=== PATIENT | female | born 1995 | race Caucasian/White ===

== ENCOUNTER 2019-03-19 01:01 | Day surgery (SDC) | payer OTHER, SELFPAY ==
[2019-03-14 11:08] VITALS: BMI 19.7
--- NOTE | 2019-03-18 17:49 | WPDANESEPP ---
Anes - Eval Pre Procedure Procedure: Operation Date: 03/19/19 07:30 Proposed Procedures p Diagnostic Laparoscopy - Jagdish Williamson MD Date/Time: 03/18/19 17:49 Pre Op Diagnosis: pelvic pain Patient Data Age: 23 Gender: F Height: 1.52 m Weight: 45.81 kg Allergies Allergy/AdvReac Type Severity Reaction Status Date / Time No Known Allergies Allergy Unverified 03/14/19 11:09 Home Medications Medication Instructions Recorded Confirmed Type cyanocobalamin (vitamin B-12) 1,000 mcg IM MONTHLY 02/12/19 03/14/19 History levonorgestrel [Mirena] 1 device INTRAUTERINE ONCE 02/12/19 03/14/19 History amitriptyline 25 mg PO HS 03/14/19 03/14/19 History hydrocodone-acetaminophen 1 tablet PO Q6H PRN 03/14/19 03/14/19 History iron 1 tablet PO DAILY 03/14/19 03/14/19 History Patient hx anesthesia problems: none Family hx anesthesia problems: none PMFSH Past Medical History Medical History (Updated 03/18/19 @ 10:47 by Feliz Grove DO) Anemia Anxiety B12 deficiency Depression Migraine Surgical History Surgical History (Updated 03/18/19 @ 10:47 by Feliz Grove DO) H/O section History of tonsillectomy Social History Social History Smoking packs per day: 0.5 Smoking cigarettes per day: 10.0 Smoking status: Current every day smoker Tobacco type: cigarettes Alcohol intake: never Substance use: never Gender identity (if verbalized by the patient): Female Exam Day of Procedure 03/18/19 17:49
[2019-03-19] VITALS (7 sets, daily range): BP systolic 93–127; BP diastolic 58–88; PULSE 72–90; RESP 12–20; TEMP 36.4; O2SAT 95–100
[2019-03-19] MEDS: LACTATED RINGERS 1,000 ML 30 ML IV CONT ×2 (06:30→08:40)
--- NOTE | 2019-03-19 06:40 | P.PNAN_ITS ---
Anes - Eval Final PreProcedure Day of Procedure 03/19/19 06:40 Patient weight: normal Heart: regular rate and rhythm Lungs: clear to auscultation Airway: Mallampati scale class II Neurological: alert and oriented Last oral intake: >/= 8 hours ASA classification: II Emergent: no Anesthetic plan: proceed Anesthesia type and monitoring: general ETT and standard monitoring Informed Consent: The patient's anesthetic plan and its attendant risks and be nefits were discussed with the patient/family/POA. Questions were solicited and answers provided to the satisfaction of the patient/family/POA.
--- NOTE | 2019-03-19 07:31 | WPDHPUPDATE1 ---
History and Physical Update Update Date/Time: 03/19/19 07:31 History and Physical has been reviewed, including an updated exam of the patient. There are NO changes in the patient's condition. Risks, benefits, and alternatives have been discussed and questions answered. Patient agrees to proceed with procedure.
[2019-03-19] MEDS: KETOROLAC 30 MG/ML VIAL (*BKC) IV PUSH (08:29)
--- NOTE | 2019-03-19 08:53 | P.OP_ITS ---
Procedure Note - Detailed Date of procedure: 03/19/19 Pre-op diagnosis: pelvic pain Post-op diagnosis: same ( Bilateral ovarian cysts, pelvic adhesions) Procedure performed: Description of procedure: The patient was taken the operating room. She was prepped and draped in the dorsal lithotomy position after induction of general anesthesia. A 5 mm left upper quadrant incision was made in the abdominal skin with a scalpel. A 5 mm trocar was inserted the intra-abdominal cavity under direct visualization of the scope. A 5 mm left lower quadrant incision was made with the scalp on the abdominal skin and a 5 mm trocar was inserted the intra- abdominal cavity under direct visualization of the scope. A 5 mm infraumbilical incision was made with scalpel and a 5 mm trocar was inserted into the intra- abdominal cavity under direct visualization of the scope. Adhesiolysis was performed. there were adhesions from the small intestine to the left lower quadrant. These were thin adhesions that were taken down with cautery and scissors. The colon was adherent to the lower left quadrant. The the adhesion between the colon and left lower quadrant were taken down with cautery and scissors. Ovarian cysts on both ovaries were broken down using cautery. A hemorrhagic corpus luteum cyst on the left ovary was opened using cautery and the clot within was irrigated. The procedure was terminated. The pelvis was irrigated with copious amounts of normal saline. The pneumoperitoneum was reduced. The trocars were removed. The patient was taken recovery room stable condition. Sponge lap and needle counts were correct x2. Anesthesia: GETA Surgeon: Jagdish Williamson MD Estimated blood loss (mL): 20 Drains: No Packing: No Complications: No immediate complications Condition: stable Disposition: PACU Findings: Adhesions from the small intestine to the left lower quadrant of the abdomen laterally, adhesions between the Descending colon inferiorly and the lateral pelvic sidewall on the left. there was multiple small ovarian cysts throughout both ovary, there is a hemorrhagic corpus luteum cyst on the left ovary of about 2 cm in size.
[2019-03-19] MEDS: HYDROMORPHONE HCL 1 MG/ML INJ 0.5 MG IV PUSH ×2 (08:55→09:01)
[2019-03-19] MEDS: ONDANSETRON INJ 4 MG/2 ML VIAL IV PUSH (10:00)
== END 2019-03-19 10:28 | disposition home or self-care (01) ==
PROVIDERS: PCP Family Medicine; Visit Provider Obstetrics & Gynecology
PROC: (CPT 49320; principal; 2019-03-19 07:30)
DX: N83.12 Corpus luteum cyst of left ovary (principal); N83.201 Unspecified ovarian cyst, right side; N73.6 Female pelvic peritoneal adhesions (postinfective); R10.2 Pelvic and perineal pain; D64.9 Anemia, unspecified; E53.8 Deficiency of other specified B group vitamins; F41.8 Other specified anxiety disorders; F17.210 Nicotine dependence, cigarettes, uncomplicated
CPT/HCPCS: 58662; A9270; J0131; J0330; J1100; J1170; J1885; J2250; J2370; J2405; J2704; J3010; J7030; J7120

== ENCOUNTER 2019-10-12 12:33 | Emergency (ER) | payer OTHER, SELFPAY ==
[2019-10-12 12:44] VITALS: BP 107/56; PULSE 86; RESP 16; TEMP 37.1; O2SAT 99
--- NOTE | 2019-10-12 12:50 | ED.SKABFB ---
HPI - Skin/Abscess/Foreign Bdy General Chief complaint: Skin/Abscess/Foreign Body Stated complaint: rash Time Seen by Provider: 10/12/19 12:50 Source: patient Mode of arrival: ambulatory Limitations: no limitations History of Present Illness HPI narrative: Candie Miranda is a 24 yo female who comes to [facility] with urticaria that started this morning. About 10 random hive appearing large itchy mildly tender lesions on legs left buttock right lower extremity. Denies allergies; denies changing any cleaning products or self care products Related Data Home Medications Medication Instructions Recorded Confirmed Mirena 1 device INTRAUTERINE ONCE 02/12/19 03/19/19 Allergies Allergy/AdvReac Type Severity Reaction Status Date / Time No Known Allergies Allergy Unverified 03/19/19 06:57 Review of Systems Review of Systems: Narrative: CONSTITUTIONAL: Denies fever, chills, sweats. EYES: Denies visual changes, redness, discharge. ENT: Denies rhinorrhea, congestion, sore throat, otalgia. CARDIOVASCULAR: Denies chest pain, palpitations, edema. RESPIRATORY: Denies dyspnea, wheezing, cough GASTROINTESTINAL: Denies abdominal pain, nausea, vomiting, diarrhea. GENITOURINARY: Denies dysuria, hematuria, abnormal discharge SKIN: Denies rash -has 10 lesions that are hive appearing. On both legs and left buttock NEUROLOGIC: Denies numbness, or focal weakness. PSYCHIATRIC: Denies anxiety or depression. PMFSH Past Medical History Medical History Anemia Anxiety B12 deficiency Depression Migraine Surgical History Surgical History H/O section History of tonsillectomy Social History Social History (Updated 10/12/19 @ 13:01 by Caren Ley CNP) Smoking packs per day: 0.5 Smoking cigarettes per day: 10.0 Smoking status: Current every day smoker Tobacco type: cigarettes Additional smoking assessment comments: Patient is trying to quit smoking is down to 1 cigarette a day currently Alcohol intake: never Substance use: never Gender identity (if verbalized by the patient): Female Exam Narrative: Exam Narrative: GENERAL: This is a well-nourished, well-developed patient, in mild distress. HEAD: normocephalic, atraumatic. EYES: Sclera clear/white. Vision is grossly intact. EARS: External ears normal,. Hearing grossly intact. NOSE: External nose normal without nasal discharge, nares without redness, no rhinorrhea. THROAT: Mucous membranes moist, NECK: Neck supple, CARDIOVASCULAR: Regular rate and rhythm without murmurs, gallops, or rubs. RESPIRATORY: Clear to auscultation. Breath sounds equal bilaterally. No wheezes, rales, or rhonchi. GASTROINTESTINAL: Abdomen soft, SKIN: warm, intact with no suspicious lesions or rash, good texture and turgor. Large hives randomly on lower extremities and left buttock NEURO: awake, alert, and oriented to person, place and time. There were no obvious focal neurologic abnormalities. Steady gait EXTREMITIES: Normal range of motion. BACK: Nontender without deformity Course Course Emergency Course: Started on Pepcid Benadryl and Medrol Dosepak Vital Signs Vital signs: Vital Signs Temperature 98.8 F 10/12/19 12:44 Pulse Rate 86 10/12/19 12:44 Respiratory Rate 16 10/12/19 12:44 Blood Pressure 107/56 L 10/12/19 12:44 Pulse Oximetry 99 10/12/19 12:44 Temperature 98.8 F 10/12/19 12:44 Pulse Rate 86 10/12/19 12:44 Respiratory Rate 16 10/12/19 12:44 Blood Pressure 107/56 L 10/12/19 12:44 Pulse Oximetry 99 10/12/19 12:44 MDM - Skin/Abscess/Foreign Bdy Differential Diagnosis Differential diagnosis: Likely viral exanthem, urticaria, allergic reaction to drug and contact dermatitis Critical Care Time Critical Care Time Critical Care Time: No Discharge Plan Discharge Clinical Impression: Urticaria Insect bites
== END 2019-10-12 13:25 | disposition home or self-care (01) ==
PROVIDERS: Emergency Provider Nurse Practitioner; PCP Family Medicine
DX: L50.9 Urticaria, unspecified (principal); S50.862A Insect bite (nonvenomous) of left forearm, initial encounter; W57.XXXA Bitten or stung by nonvenomous insect and other nonvenomous arthropods, initial encounter; F17.210 Nicotine dependence, cigarettes, uncomplicated
CPT/HCPCS: 99213; G0463

== ENCOUNTER 2020-05-21 13:40 | Outpatient (CLI) | payer OTHER, SELFPAY | END 2020-05-21 13:41 | disposition home or self-care (01) | LOC: ANHCOVIDVC 13:40 | PROVIDERS: PCP Family Medicine | DX: Z23 Encounter for immunization (principal) | CPT/HCPCS: 0001A; 91300 ==

== ENCOUNTER 2020-05-25 13:53 | Outpatient (CLI) | payer OTHER, SELFPAY ==
--- NOTE | 2020-05-25 | ECHO_ITS ---
Patient Info Name: Candie Miranda Age: 24 years : 1995 Gender: Female Ht: 60 in Wt: 120 lbs BSA: 1.53 m2 HR: 81 bpm BP: 110 / 74 mmHg Heart Rhythm: Sinus Rhythm Technical Quality: Good Exam Date: 05/25/2020 2:14 PM Exam Location: [facility] Patient Status: Outpatient Admit Date: 05/25/2020 Staff Ordering Physician: Porfirio, Gamaliel PEREZ Mechanical Test Engineer: Wesly Lion, TERRIE, RT Attending Provider: Porfirio, Gamaliel PEREZ Exam Type: CA echo doppler color flow Study Info Indications R55 - Syncope and collapse Complete two-dimensional, color flow and Doppler transthoracic echocardiogram is performed. Strain analysis performed. Summary 1. Complete two-dimensional, color flow and Doppler transthoracic echocardiogram is performed. 2. Strain analysis performed. 3. Left ventricular chamber dimension is normal. 4. Left ventricular systolic function is normal, estimated at 55-60%. 5. There is no increased left ventricular wall thickness. 6. The left ventricular diastolic function is normal. 7. Global longitudinal strain is borderline at -17 %. 8. There is mild mitral valve regurgitation. 9. There is mild tricuspid valve regurgitation. Left Ventricle Left ventricular chamber dimension is normal. Left ventricular systolic function is normal, estimated at 55-60%. There is no increased left ventricular wall thickness. The left ventricular diastolic function is normal. Global longitudinal strain is borderline at -17 %. Right Ventricle Right ventricular chamber dimension is normal. Right ventricular systolic function is normal. Left Atria Left atrial chamber dimension is normal. Right Atria Right atrial chamber dimension is normal. Atrial Septum Intact interatrial septum visualized by color flow imaging. Aortic Valve The aortic valve is trileaflet. There is mild aortic valve sclerosis. There is no aortic valve stenosis. There is trace aortic valve regurgitation. Pulmonic Valve The pulmonic valve is normal. There is no pulmonic valve stenosis. There is trace pulmonic regurgitation. Mitral Valve The mitral valve has normal leaflets. There is no mitral valve stenosis. There is mild mitral valve regurgitation. Tricuspid Valve The tricuspid valve leaflets are normal. There is no significant tricuspid valve stenosis. There is mild tricuspid valve regurgitation. Pericardium/Pleural The pericardium appears normal. There is no pericardial effusion. Inferior Vena Cava Normal inferior vena cava with <50% collapse upon inspiration consistent with elevated right atrial pressure, 10 mmHg. Aorta The aortic root size at the sinus of Valsalva is normal. The prox ascending aorta size is normal. Left Ventricular Outflow Tract Name Value Normal LVOT 2D LVOT Diameter 2.0 cm LVOT Doppler LVOT Peak Gradient 3 mmHg LVOT Mean Gradient 2 mmHg LVOT VTI 17 cm LVOT VTI/AV VTI Ratio 0.8 LVOT Stroke Volume 50 ml LVOT
== END 2020-05-25 13:54 | disposition home or self-care (01) ==
LOC: ANHCARD 13:54
PROVIDERS: PCP Family Medicine; Visit Provider Nurse Practitioner Family
DX: R55 Syncope and collapse (principal); I34.0 Nonrheumatic mitral (valve) insufficiency; I36.1 Nonrheumatic tricuspid (valve) insufficiency
CPT/HCPCS: 93306

== ENCOUNTER 2020-06-11 13:54 | Outpatient (CLI) | payer OTHER, SELFPAY | END 2020-06-11 13:55 | disposition home or self-care (01) | LOC: ANHCOVIDVC 13:54 | PROVIDERS: PCP Family Medicine | DX: Z23 Encounter for immunization (principal) | CPT/HCPCS: 0002A; 91300 ==

== ENCOUNTER 2021-03-12 15:37 | Emergency (ER) | payer OTHER, SELFPAY ==
--- NOTE | 2021-03-12 15:41 | ED.ABDPAIN ---
HPI - Abdominal Pain General Chief Complaint: Abdominal Pain Stated Complaint: Abdominal Pain Time Seen by Provider: 03/12/21 15:47 Source: patient, RN notes reviewed and old records reviewed Mode of arrival: ambulatory Limitations: no limitations History of Present Illness HPI narrative: 25-year-old female presents to the [facility] with right lower quadrant pain, nausea without vomiting, decreased appetite for the last 2 days. States she has not been urinating as frequently. Patient denies vomiting. Patient denies any urgency or burning with urination. Patient is concerned that her IUD is out of date. Patient denies any significant past medical history. States surgically she has had cysts removed From her ovaries and a . MD elicited complaint: abdominal pain Related Data Home Medications Medication Instructions Recorded Confirmed Mirena 1 device INTRAUTERINE ONCE 02/12/19 03/19/19 Allergies Allergy/AdvReac Type Severity Reaction Status Date / Time No Known Allergies Allergy Verified 03/12/21 15:39 Review of Systems Review of Systems: All systems reviewed & are unremarkable except as noted in HPI and below Constitutional: Constitutional: Reports no additional constitutional complaints, Denies body ache(s), Denies chills and Denies fever(s) Eyes: Eyes: Reports no additional eye complaints ENT: Reports system reviewed and no additional complaints, except as documented Cardiovascular: Cardiovascular: Reports no additional cardiovascular complaints, Denies chest pain and Denies dyspnea Respiratory: Respiratory: Reports no additional respiratory complaints, Denies cough and Denies dyspnea Gastrointestinal: Gastrointestinal: Reports as per HPI, Reports abdominal pain (Right lower quadrant), Denies diarrhea, Reports nausea and Denies vomiting Genitourinary: Genitourinary: Reports no additional female genitourinary complaints, Denies nocturia, Denies dysuria, Denies flank pain and Denies urinary incontinence Musculoskeletal: Musculoskeletal: Reports no additional musculoskeletal complaints Integumentary/Breasts: Skin/Breast: Reports system reviewed and no additional complaints, except as docu Neurologic: Reports system reviewed and no additional complaints, except as documented Psychiatric: Psychiatric: Reports no additional psychiatric complaints Allergic/Immunologic: Allergic/Immunologic: Reports no additional allergic/immunologic complaints [facility] Past Medical History Medical History (Updated 03/12/21 @ 16:01 by Tisha Rodriguez) Anemia Anxiety B12 deficiency Depression Migraine Surgical History Surgical History H/O section History of tonsillectomy Social History Social History Smoking packs per day: 0.5 Smoking cigarettes per day: 10.0 Smoking status: Current every day smoker Tobacco type: cigarettes Additional smoking assessment comments: Patient is trying to quit smoking is down to 1 cigarette a day currently Alcohol intake: never Substance use: never Gender identity (if verbalized by the patient): Female Comments At the time of my signature, I reviewed and agree with the nursing past medical, surgical, social, and family history. There is no relevant family history pertinent to the patient complaint. Exam Const: General: cooperative, healthy appearing, comfortable, no acute distress, well developed and alert Nutritional Appearance: well nourished Orientation/consciousness: patient oriented x3 Limitations: no limitations HENMT: Head: normal to inspection Ears: external ears normal Eyes: Pupils: Equal, round and reactive pupils present Neck: Neck: normal visual inspection, no lymphadenopathy and no meningeal signs Chest: Chest palpation & inspection: normal inspection of the chest Resp: Effort & Inspection: normal respiratory effort, able to speak in complet
[2021-03-12 15:46] VITALS: BP 96/56; PULSE 102; RESP 18; TEMP 36.5; O2SAT 100
== END 2021-03-12 15:55 | disposition short-term general hospital (02) ==
PROVIDERS: Emergency Provider Nurse Practitioner; PCP Family Medicine
DX: R10.31 Right lower quadrant pain (principal); F17.210 Nicotine dependence, cigarettes, uncomplicated
CPT/HCPCS: 99212; G0463

== ENCOUNTER 2021-03-12 16:10 | Emergency (ER) | payer OTHER, SELFPAY ==
[2021-03-12] VITALS (15 sets, daily range): BP systolic 106; BP diastolic 76; PULSE 104; RESP 16; O2SAT 99–100
--- NOTE | ~2021-03-12 | CT_ITS ---
EXAMINATION: CT abdomen pelvis w con EXAM DATE: 03/12/2021 17:59 INDICATION: RLQ abd pain . TECHNIQUE: Spiral CT of the abdomen and pelvis was performed following intravenous injection of 100 m L Omnipaque 350. Axial, coronal and sagittal images of the abdomen and pelvis were reviewed. The do se-length product (DLP) for this examination was 182.24 mGy-cm. The exposure was tailored according to patient size (auto mA exposure control), and iterative reconstruction (ASIR) was used as additiona l dose reduction technique. Comparison is made to prior examination from 03/26/2018. FINDINGS: The liver, spleen, adrenal glands and pancreas are unremarkable. Gallbladder is unremarkab le. No biliary obstruction. Portal and splenic veins are patent. Kidneys enhance symmetrically. T here is no hydronephrosis. There is a peripherally enhancing right ovarian cystic lesion with incomplete wall posteriorly, small to moderate amount of free pelvic fluid. Appearance suggests a recently ruptured hemorrhagic cyst. T he uterus is anteverted with an IUD. The bladder is unremarkable. There is no retroperitoneal or pel radha lymphadenopathy. The appendix is normal. The stomach and small bowel are unremarkable. There is expected amount of c olonic stool. No free intraperitoneal gas. The heart is normal in size. There are no pericardial or pleural effusions. The lung bases are unremarkable. The bones are unremarkable. IMPRESSION: 1. Finding consistent with recently ruptured right ovarian hemorrhagic cyst. 2. Normal appendix. Reviewed, dictated and finalized at location [facility]
[2021-03-12 16:47] LABS: Basophils Percent Auto 0.2 % (0.2-1.2); Eosinophils Percent Auto 0.7 % (0-4.4); Hematocrit 41.8 % (37.0-47.0); Immature Granulocyte Absolute 0.01 K/mm3 (0.00-0.031); Immature Granulocyte Percent A 0.2 % (0-0.5); Lymphocytes Absolute Auto 0.64 K/mm3 (0.9-3.2); Lymphocytes Percent Auto 11.7 % (18.3-44.2); Mean Corpuscular HGB Conc 33.5 g/dl (32-36); Mean Corpuscular Hemoglobin 31.7 pg (26-34); Mean Corpuscular Volume 94.8 fl (80-100); Mean Platelet Volume 10.2 fl (7.4-10.4); Monocytes Absolute Auto 0.7 K/mm3 (0.1-0.6); Monocytes Percent Auto 12.6 % (2.6-8.5); Neutrophils Absolute Auto 4.1 K/mm3 (1.3-6.7); Neutrophils Percent Auto 74.6 % (45.5-73.1); Platelet Count Result 246 k/mm3 (150-375); Red Blood Count 4.41 M/mm3 (4.2-5.4); Red Cell Distribution Width 12.2 % (11.5-14.5); White Blood Count 5.5 K/mm3 (4.5-10.0)
[2021-03-12 16:57] LABS: Alanine Aminotransferase 10 U/L (4-35); Albumin Level 4.4 g/dL (3.5-5.1); Alkaline Phosphatase 77 U/L (38-126); Anion Gap 5 mmol/L (8-16); Aspartate Amino Transferase 21 U/L (14-36); Bilirubin,Total 0.7 mg/dL (0.2-1.3); Blood Urea Nitrogen 7 mg/dL (7-17); Calcium 9.1 mg/dL (8.4-10.2); Carbon Dioxide 30 mmol/L (22-30); Chloride 101 mmol/L (98-107); Estimated Glomerular Filt Rate > 60; Glucose 104 mg/dL (65-110); Lipase 37 U/L (23-300); Potassium 4.1 mmol/L (3.4-5.0); Sodium 136 mmol/L (137-145)
[2021-03-12 17:03] LABS: Add Urine Microscopic? YES; Appearance Urine Cloudy (Clear); Bacteria Urine 3+ /hpf; Bilirubin Urine Negative (Negative); Blood Urine Negative (Negative); Color Urine Yellow (Yellow); Glucose Urine UA Negative (Negative); Ketones Urine Negative (Negative); Leukocyte Esterase Ur Negative LEU/UL (Negative); Nitrate Urine Negative (Negative); Protein Urine Negative (Negative); RBC Urine 0-2 /hpf (0-2); Specific Grav Ur 1.005 (1.001-1.035); Squamous Epithelial Cell Urine Many /hpf (Few); Urobilinogen Urine Negative mg/dL (<2.0)
--- NOTE | 2021-03-12 17:47 | ED.ABDPAIN ---
HPI - Abdominal Pain General Chief Complaint: Abdominal Pain <VERONA Kumar Last Filed: 03/12/21 19:57> Stated Complaint: abd pain <VERONA Kumar Last Filed: 03/12/21 19:57> Time Seen by Provider: 03/12/21 16:33 <VERONA Kumar Last Filed: 03/12/21 19:57> Source: patient <VERONA Kumar Last Filed: 03/12/21 19:57> Mode of arrival: ambulatory <VERONA Kumar Last Filed: 03/12/21 19:57> Limitations: no limitations <VERONA Kumar Last Filed: 03/12/21 19:57> History of Present Illness HPI narrative: This is a 25 year old female that presents to the ER for RLQ abdominal pain present over the last 2 days. Reports a constant pain in the RLQ, associated with nausea and anorexia. She was sent here from urgent care for further evaluation. Denies fever, vomiting, or dysuria. <VERONA Kumar Last Filed: 03/12/21 19:57> Related Data Home Medications: Home Medications Medication Instructions Recorded Confirmed Mirena 1 device INTRAUTERINE ONCE 02/12/19 03/12/21 <VERONA Kumar Last Filed: 03/12/21 19:57> Allergies/Adverse Reactions: Allergies Allergy/AdvReac Type Severity Reaction Status Date / Time No Known Allergies Allergy Verified 03/12/21 15:39 <VERONA Kumar Last Filed: 03/12/21 19:57> Review of Systems Review of Systems: CONSTITUTIONAL: Denies fever GASTROINTESTINAL: Reports abdominal pain, nausea. Denies vomiting, or diarrhea. GENITOURINARY: Denies dysuria or hematuria. <VERONA Kumar Last Filed: 03/12/21 19:57> All systems reviewed & are unremarkable except as noted in HPI and below <VERONA Kumar Last Filed: 03/12/21 19:57> [facility] Past Medical History Medical History: Medical History (Updated 03/13/21 @ 00:01 by Fede Clark) Anemia Anxiety B12 deficiency Depression Migraine <Maddy Pastor PA-C - Last Filed: 03/12/21 19:57> Surgical History Surgical History: Surgical History H/O section History of tonsillectomy <Maddy Pastor PA-C - Last Filed: 03/12/21 19:57> Social History Social History: Social History Smoking packs per day: 0.5 Smoking cigarettes per day: 10.0 Smoking status: Current every day smoker Tobacco type: cigarettes Additional smoking assessment comments: Patient is trying to quit smoking is down to 1 cigarette a day currently Alcohol intake: never Substance use: never Gender identity (if verbalized by the patient): Female <Maddy Pastor PA-C - Last Filed: 03/12/21 19:57> Exam Narrative: GENERAL: Well-appearing, well-nourished, and in no acute distress. HEAD: Normocephalic, atraumatic. EYES: EOMI. CHEST: Clear to auscultation. No respiratory distress. No wheezes rales or rhonchi HEART: Regular rate and rhythm. No murmur heard. Normal peripheral pulses. ABDOMEN: Soft, nondistended, normal active bowel sounds. Tender to palpation in the right lower quadrant, without guarding EXTREMITIES: Normal range of motion. No edema. SKIN: Warm, dry, no rash. NEURO: No focal deficits. Alert and oriented x3. 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 I was available for evaluation and consultation, I agree with the documentation <Jose Miller MD - Last Filed: 03/15/21 20:54> Vital Signs Vital signs: Vital Signs Pulse Rate 104 H 03/12/21 16:37 Respiratory Rate 16 03/12/21 16:37 Blood Pressure 106/76 03/12/21 16:37 Pulse Oximetry 100 03/12/21 16:37 Pulse Rate 104 H 03/12/21 16:37 Respiratory Rate 16 03/12/21 16:37 Blood Pressure 106/76 03/12/21 16:39 Pulse Oximetry 100 03/12/21 19:49 <Maddy
[2021-03-12] MEDS: SODIUM CHLORIDE 0.9% IV 1,000 ML 999 ML IV CONT (18:00)
[2021-03-12] MEDS: ONDANSETRON INJ 4 MG/2 ML VIAL IV PUSH (18:01)
== END 2021-03-12 20:06 | disposition home or self-care (01) ==
PROVIDERS: Physician Assistant; Emergency Provider Emergency Medicine; PCP Family Medicine
DX: N83.201 Unspecified ovarian cyst, right side (principal); E53.8 Deficiency of other specified B group vitamins; F17.210 Nicotine dependence, cigarettes, uncomplicated
CPT/HCPCS: 36415; 74177; 80053; 81001; 81025; 83690; 85025; 96361; 96374; 96375; 99212; 99284; G0463; J0131; J2405; J7030; Q9967

== ENCOUNTER 2021-08-10 12:11 | Emergency (ER) | payer OTHER, SELFPAY ==
[2021-08-10] VITALS (42 sets, daily range): BP systolic 87–113; BP diastolic 49–71; PULSE 80–96; RESP 14; TEMP 36.2; O2SAT 91–100
--- NOTE | 2021-08-10 12:33 | ECG_ITS ---
Measurements Intervals [place] Rate: 80 P: 60 ND: 159 QRS: 77 QRSD: 73 T: 23 QT: 347 QTc: 402 Interpretive Statements SINUS RHYTHM BORDERLINE T WAVE ABNORMALITY- ANT/INF LEADS BASELINE WANDER- I, III BORDERLINE ECG Electronically Signed On 08-10-2021 13:07:25 CDT by Flavio Mcgovern D.O.
[2021-08-10 12:41] LABS: Basophils Percent Auto 0.4 % (0.2-1.2); Eosinophils Absolute Auto 0.1 K/mm3 (0-0.3); Eosinophils Percent Auto 1.2 % (0-4.4); Hematocrit 37.3 % (37.0-47.0); Hemoglobin 12.5 g/dL (12.0-15.0); Immature Granulocyte Absolute 0.01 K/mm3 (0.00-0.031); Immature Granulocyte Percent A 0.1 % (0-0.5); Lymphocytes Absolute Auto 2.02 K/mm3 (0.9-3.2); Lymphocytes Percent Auto 29.2 % (18.3-44.2); Mean Corpuscular HGB Conc 33.5 g/dl (32-36); Mean Corpuscular Hemoglobin 31.9 pg (26-34); Mean Corpuscular Volume 95.2 fl (80-100); Mean Platelet Volume 10.4 fl (7.4-10.4); Monocytes Absolute Auto 0.5 K/mm3 (0.1-0.6); Monocytes Percent Auto 7.8 % (2.6-8.5); Neutrophils Absolute Auto 4.2 K/mm3 (1.3-6.7); Neutrophils Percent Auto 61.3 % (45.5-73.1); Platelet Count Result 290 k/mm3 (150-375); Red Blood Count 3.92 M/mm3 (4.2-5.4); Red Cell Distribution Width 12.6 % (11.5-14.5); White Blood Count 6.9 K/mm3 (4.5-10.0)
[2021-08-10 12:51] LABS: Alanine Aminotransferase 9 U/L (6-35); Alkaline Phosphatase 79 U/L (38-126); Anion Gap 6 mmol/L (8-16); Aspartate Amino Transferase 19 U/L (14-36); Bilirubin,Total 0.1 mg/dL (0.2-1.3); Blood Urea Nitrogen 6 mg/dL (7-17); Calcium 8.6 mg/dL (8.4-10.2); Carbon Dioxide 24 mmol/L (22-30); Chloride 105 mmol/L (98-107); Estimated CRCL calculation 101 ml/min; Estimated Glomerular Filt Rate > 60; Glucose 92 mg/dL (65-110); Potassium 3.7 mmol/L (3.4-5.0); Sodium 135 mmol/L (137-145)
[2021-08-10 13:57] LABS: Appearance Urine Clear (Clear); Bilirubin Urine Negative (Negative); Blood Urine Negative (Negative); Color Urine Yellow (Yellow); Glucose Urine UA Negative (Negative); Ketones Urine Negative (Negative); Leukocyte Esterase Ur Negative LEU/UL (Negative); Nitrate Urine Negative (Negative); Protein Urine Negative (Negative); Urobilinogen Urine 0.2 mg/dL (<2.0)
[2021-08-10] MEDS: SODIUM CHLORIDE 0.9% IV 1,000 ML 999 ML IV CONT (13:59)
[2021-08-10 14:04] LABS: Add Urine Microscopic? NO
--- NOTE | 2021-08-10 15:20 | ED.GENADULT ---
HPI - General Adult General Chief complaint: Dizziness Stated complaint: blood pressure low yesterday, dizzy Time Seen by Provider: 08/10/21 12:12 History of Present Illness HPI narrative: Patient is a 25-year-old female who presents ER with reports of fatigue and some dizziness. Began yesterday. Noted her blood pressure was low in the 90s yesterday. She reports today when she stands up she will occasionally feel like her feet are swollen. No fevers or chills or sweats. No low back pain. No trauma. She reports she takes metoprolol 25 mg daily to control her baseline tachycardia that can run in the 180s. Patient is having no chest pain or chest pressure or dyspnea. No known sick contacts. Patient denies any focal weakness or inability to walk. Related Data Home Medications Medication Instructions Recorded Confirmed levonorgestrel 20 mcg/24 hours (7 1 device intrauterine ONCE 02/12/19 03/12/21 yrs) 52 mg intrauterine device (Mirena) Allergies Allergy/AdvReac Type Severity Reaction Status Date / Time No Known Allergies Allergy Verified 08/10/21 12:21 Review of Systems Review of Systems: All systems reviewed & are unremarkable except as noted in HPI and below Constitutional: Constitutional: Denies chills, Reports fatigue and Denies fever(s) Eyes: Eyes: Denies change in vision ENT: Denies nasal congestion and Denies sore throat Cardiovascular: Cardiovascular: Denies chest pain, Denies rapid heart rate and Denies radiating jaw, neck or arm pain Respiratory: Respiratory: Denies cough and Denies dyspnea Gastrointestinal: Gastrointestinal: Denies abdominal pain, Denies diarrhea, Denies nausea and Denies vomiting Genitourinary: Genitourinary: Denies nocturia and Denies dysuria Musculoskeletal: Musculoskeletal: Denies back pain, Denies arthralgias and Denies joint swelling Neurologic: Reports dizziness, Denies syncope, Denies focal weakness and Denies numbness [facility] Past Medical History Medical History (Updated 08/10/21 @ 15:55 by Haresh Douglas MD) Anemia Anxiety B12 deficiency Depression Migraine Tachycardia, unspecified Surgical History Surgical History H/O section History of tonsillectomy Social History Social History Smoking packs per day: 0.5 Smoking cigarettes per day: 10.0 Smoking status: Current every day smoker Tobacco type: cigarettes Additional smoking assessment comments: Patient is trying to quit smoking is down to 1 cigarette a day currently Alcohol intake: never Substance use: never Gender identity (if verbalized by the patient): Female Exam Narrative: GENERAL: Well-appearing, well-nourished, and in no acute distress. HEAD: Normocephalic, atraumatic. EYES: PERRL and EOMI. CHEST: Clear to auscultation. No respiratory distress. HEART: Regular rate and rhythm. Normal peripheral pulses. ABDOMEN: Soft, nontender, nondistended. Back: No reproducible midline paraspinal muscle tenderness of the T/L-spine. No tenderness of the upper gluteal region. EXTREMITIES: Normal range of motion. No edema. SKIN: Warm, dry, no rash. NEURO: No focal deficits. Alert and oriented x3. PSYCH: Normal mood and affect. Course Course Emergency Course: Patient resting comfortably. Informed of results. Persistent blood pressures in the 90s while sitting in bed. No distress. No dizziness with standing after fluids. Comfortable discharge home. Recommend decreasing Toprol by half. Patient verbalized understanding. Chart review shows previous blood pressures in the 90s on other visits. Vital Signs Vital signs: Vital Signs Temperature 97.1 F L 08/10/21 12:12 Pulse Rate 96 08/10/21 12:12 Respiratory Rate 14 08/10/21 12:12 Blood Pressure 111/65 08/10/21 12:12 Pulse Oximetry 98 08/10/21 12:12 Oxygen Delivery Room Air 08/10/21 12:12
== END 2021-08-10 16:17 | disposition home or self-care (01) ==
PROVIDERS: Emergency Provider Emergency Medicine; PCP Family Medicine
DX: R53.83 Other fatigue (principal); D64.9 Anemia, unspecified; F41.9 Anxiety disorder, unspecified; F32.9 Major depressive disorder, single episode, unspecified; F17.210 Nicotine dependence, cigarettes, uncomplicated
CPT/HCPCS: 36415; 80053; 81003; 81025; 85025; 93005; 96360; 96361; 99284; J7030

== ENCOUNTER 2021-08-15 18:19 | Emergency (ER) | payer OTHER, SELFPAY ==
--- NOTE | ~2021-08-15 | XR_ITS ---
XR ankle RT min 3V 08/15/2021 19:04 INDICATION: Right ankle pain PROCEDURE: 4 views right ankle COMPARISON: No prior studies for comparison. FINDINGS: Fracture, dislocation or subluxation is not identified. Ankle mortise intact. The soft tiss ues appear within normal limits. No foreign bodies are identified. IMPRESSION: 1: NO ACUTE BONE OR JOINT ABNORMALITY IDENTIFIED. Reviewed, dictated and finalized at location A.
[2021-08-15 18:47] VITALS: BP 109/65; PULSE 89; RESP 16; TEMP 36.3; O2SAT 100
[2021-08-15 19:12] VITALS: BP 109/65; PULSE 89; RESP 16; TEMP 36.3; O2SAT 100
--- NOTE | 2021-08-15 19:37 | ED.LOWEXIN ---
HPI - Extremity Injury (Lower) General Chief Complaint: Extremity Injury, Lower Stated Complaint: right ankle pain Time Seen by Provider: 08/15/21 19:32 Source: patient Mode of arrival: ambulatory Limitations: no limitations History of Present Illness HPI Narrative: 25-year-old female presented for complaint of right pain after injury today about 30 minutes [employer]. She states it felt that her ankle gave out causing her to fall. Endorses that her toes feel tingling sensation. She denies numbness, weakness or significant swelling to the ankle. Minimal pain at rest, worse with walking. Did not take anything for pain. Related Data Home Medications Medication Instructions Recorded Confirmed levonorgestrel 20 mcg/24 hours (7 1 device intrauterine ONCE 02/12/19 03/12/21 yrs) 52 mg intrauterine device (Mirena) Metoprolol 08/15/21 amitriptyline 25 mg tablet tablet 08/15/21 Allergies Allergy/AdvReac Type Severity Reaction Status Date / Time No Known Allergies Allergy Verified 08/10/21 12:21 Review of Systems Review of Systems: CONSTITUTIONAL: Denies body aches, fever, chills CARDIOVASCULAR: Denies chest pain, palpitations, or edema. RESPIRATORY: Denies cough or dyspnea. GASTROINTESTINAL: Denies abdominal pain SKIN: Denies bruising or wounds. MUSCULOSKELETAL:reports ankle pain NEUROLOGIC: Denies headache All systems reviewed & are unremarkable except as noted in HPI and below PMFSH Past Medical History Medical History Anemia Anxiety B12 deficiency Depression Migraine Tachycardia, unspecified Surgical History Surgical History H/O section History of tonsillectomy Social History Social History Smoking packs per day: 0.5 Smoking cigarettes per day: 10.0 Smoking status: Current every day smoker Tobacco type: cigarettes Additional smoking assessment comments: Patient is trying to quit smoking is down to 1 cigarette a day currently Alcohol intake: never Substance use: never Gender identity (if verbalized by the patient): Female Comments At time of signature, I have reviewed and agree with nursing past medical, surgical, social and family history unless otherwise noted. Please see nursing chart for further information. There is no relevant family history pertinent to the presenting complaint Exam Narrative: GENERAL: Well-appearing CHEST: No respiratory distress. HEART: Regular rate and rhythm. Normal and equal peripheral pulses. EXTREMITIES: Right foot has normal strength and sensation, normal range of motion at ankle but endorses pain with movement. No edema or ecchymosis, No point tenderness. No open wounds or obvious deformity; pulse palpable and equal bilaterally, skin warm, dry, pink. Capillary refill less than 3 seconds. SKIN: Warm, dry, no rash. NEURO: Alert and oriented x3. PSYCH: Normal mood and affect Course Course Emergency Course: Patient is aware of diagnosis, understands and agrees to treatment plan. Anticipatory guidance given. Patient agrees to follow-up as directed and is aware of reasons to seek care at the emergency department. Portions of this record may have been created with voice recognition software Level of Care: Express Care Visit Vital Signs Vital signs: Vital Signs Temperature 97.4 F L 08/15/21 18:47 Pulse Rate 89 08/15/21 18:47 Respiratory Rate 16 08/15/21 18:47 Blood Pressure 109/65 08/15/21 18:47 Pulse Oximetry 100 08/15/21 18:47 Oxygen Delivery Room Air 08/15/21 18:47 Temperature 97.4 F L 08/15/21 19:12 Pulse Rate 89 08/15/21 19:12 Respiratory Rate 16 08/15/21 19:12 Blood Pressure 109/65 08/15/21 19:12 Pulse Oximetry 100 08/15/21 19:12 Oxygen Delivery Room Air 08/15/21 19:12 Reviewed MDM - Extremity Injury (Lower
== END 2021-08-15 19:54 | disposition home or self-care (01) ==
PROVIDERS: Emergency Provider Nurse Practitioner Family
DX: S93.401A Sprain of unspecified ligament of right ankle, initial encounter (principal); S96.911A Strain of unspecified muscle and tendon at ankle and foot level, right foot, initial encounter; W19.XXXA Unspecified fall, initial encounter; F32.A Depression, unspecified; F17.210 Nicotine dependence, cigarettes, uncomplicated
CPT/HCPCS: 73610; 99213; G0463

== ENCOUNTER 2022-01-15 08:30 | Emergency (ER) | payer OTHER, SELFPAY ==
[2022-01-15 08:47] VITALS: BP 101/63; PULSE 99; RESP 16; TEMP 37.2; O2SAT 100
--- NOTE | 2022-01-15 08:59 | ED.URI ---
HPI - URI/Sore Throat General Chief Complaint: Upper Respiratory Infection Stated Complaint: Sore Throat Time Seen by Provider: 01/15/22 08:59 Source: patient Mode of arrival: ambulatory Limitations: no limitations History of Present Illness HPI Narrative: 26-year-old female presents with complaint of sore throat and swelling starting this morning. No other symptoms. States that she left work due to sore throat. All systems reviewed and negative except as noted above. Related Data Home Medications Medication Instructions Recorded Confirmed levonorgestrel 20 mcg/24 hours (8 1 device intrauterine ONCE 02/12/19 01/15/22 yrs) 52 mg intrauterine device (Mirena) Allergies Allergy/AdvReac Type Severity Reaction Status Date / Time No Known Allergies Allergy Verified 01/15/22 08:46 Review of Systems Review of Systems: CONSTITUTIONAL: Denies fever, chills, or sweats. EYES: Denies visual changes, redness, or discharge. ENT: Denies rhinorrhea, congestion . Reports sore throat. Denies otalgia. CARDIOVASCULAR: Denies chest pain, palpitations, or edema. RESPIRATORY: Denies cough or dyspnea. GASTROINTESTINAL: Denies abdominal pain, nausea, vomiting, or diarrhea. GENITOURINARY: Denies dysuria or hematuria. SKIN: Denies rash or itching. MUSCULOSKELETAL: Denies back pain, joint pain, or myalgia. NEUROLOGIC: Denies headache, numbness, or weakness. PSYCHIATRIC: Denies anxiety or depression. All other systems reviewed are negative, except as documented in HPI. [facility] Past Medical History Medical History Anemia Anxiety B12 deficiency Depression Migraine Tachycardia, unspecified Surgical History Surgical History H/O section History of tonsillectomy Social History Social History Smoking packs per day: 0.5 Smoking cigarettes per day: 10.0 Smoking status: Current every day smoker Tobacco type: cigarettes Additional smoking assessment comments: Patient is trying to quit smoking is down to 1 cigarette a day currently Alcohol intake: never Substance use: never Gender identity (if verbalized by the patient): Female Comments At time of signature, agree with nursing past medical, surgical, social and family history. There is no relevant family history pertinent to the presenting complaint. Exam Narrative: GENERAL: This is a well-nourished, well-developed patient, in no apparent distress. HEAD: normocephalic, atraumatic. EYES: PERRL. Sclera clear/white. Vision is grossly intact. EARS: External ears normal, auditory canals clear and without drainage, TMs normal without perforation. Hearing grossly intact. NOSE: External nose normal with no obvious nasal discharge, nares without redness, no rhinorrhea. THROAT: Mucous membranes moist, erythema and swelling to uvula. NECK: Neck supple, non-tender without lymphadenopathy, masses or thyromegaly. CARDIOVASCULAR: Regular rate and rhythm without murmurs, gallops, or rubs. RESPIRATORY: Clear to auscultation. Breath sounds equal bilaterally. No wheezes, rales, or rhonchi. SKIN: warm, Dry, intact with no suspicious lesions or rash, good texture and turgor. NEURO: awake, alert, and oriented to person, place and time. There were no obvious focal neurologic abnormalities. EXTREMITIES: No joint tenderness, effusion, or edema noted. Course Course Level of Care: Express Care Visit Vital Signs Vital signs: Vital Signs Temperature 37.2 C 01/15/22 08:47 Pulse Rate 99 01/15/22 08:47 Respiratory Rate 16 01/15/22 08:47 Blood Pressure 101/63 01/15/22 08:47 Pulse Oximetry 100 01/15/22 08:47 Temperature 37.2 C 01/15/22 08:47 Pulse Rate 99 01/15/22 08:47 Respiratory Rate 16 01/15/22 08:47 Blood Pressure 101/63 01/15/22 08:47 Pulse Oximetry 100 01/15/22 0
== END 2022-01-15 09:12 | disposition home or self-care (01) ==
PROVIDERS: Emergency Provider Nurse Practitioner Family; PCP Family Medicine
DX: K12.2 Cellulitis and abscess of mouth (principal); F17.210 Nicotine dependence, cigarettes, uncomplicated
CPT/HCPCS: 99213; G0463

== ENCOUNTER 2022-05-19 08:24 | Outpatient (CLI) | payer OTHER, SELFPAY ==
--- NOTE | ~2022-05-19 | US_ITS ---
Pelvic ultrasound. Clinical History: IUD placement Technique: Realtime transabdominal and transvaginal scanning of the pelvis was performed. Color flow Doppler and Doppler spectral analysis were performed. Findings: The uterus is retroverted. The endometrial stripe has a thickness of 4 mm. IUD in satisfac tory position. No focal mass is identified. The right ovary measures 2.7 x 2.1 x 1.7 cm. No significant right ovarian or adnexal mass is seen. The left ovary measures 2.6 x 2.3 x 2.0 cm. No significant left ovarian or adnexal mass is seen. There is no evidence of free fluid in the cul de sac. Impression: IUD in satisfactory position. Reviewed, dictated and finalized at location . Impression: IUD in satisfactory position.
== END 2022-05-19 08:25 | disposition home or self-care (01) ==
PROVIDERS: PCP Family Medicine; Visit Provider Registered Nurse
DX: Z30.431 Encounter for routine checking of intrauterine contraceptive device (principal)
CPT/HCPCS: 76830; 76856

== ENCOUNTER 2023-04-21 12:26 | Emergency (ER) | payer SELFPAY ==
[2023-04-21 12:44] VITALS: BP 109/58; PULSE 98; RESP 16; TEMP 36.8; O2SAT 100
--- NOTE | 2023-04-21 13:17 | ED.EAR ---
HPI - Ear Problem General Chief complaint: Ear Stated complaint: Ears Irritation/Sinus Time Seen by Provider: 04/21/23 13:11 Source: patient and RN notes reviewed Mode of arrival: ambulatory Limitations: no limitations History of Present Illness HPI Narrative: Patient presents today complaining of 4 day history of nasal congestion, body aches, sweats, subjective fever, with left ear pain and muffling that started today. Currently rates her pain 5/10 and has been taking NyQuil without much relief. She had a negative home COVID test. Related Data Home Medications Medication Instructions Recorded Confirmed levonorgestrel 21 mcg/24 hours (8 1 device intrauterine ONCE 02/12/19 04/21/23 yrs) 52 mg intrauterine device (Mirena) Allergies Allergy/AdvReac Type Severity Reaction Status Date / Time latex Allergy Intermediate Rash Verified 04/21/23 12:41 flagyl Allergy Unknown Itching Uncoded 04/21/23 12:41 Review of Systems Review of Systems: CONSTITUTIONAL: + body aches, subjective fever, sweats EYES: Denies visual changes, redness, or discharge. ENT: Denies rhinorrhea, sore throat.+ left ear pain and muffling, congestion CARDIOVASCULAR: Denies chest pain, palpitations, or edema. RESPIRATORY: Denies cough or dyspnea. GASTROINTESTINAL: Denies abdominal pain, nausea, vomiting, or diarrhea. GENITOURINARY: Denies dysuria or hematuria. SKIN: Denies rash, itching, or wounds. MUSCULOSKELETAL: Denies back pain, joint pain, or myalgia. NEUROLOGIC: Denies headache, numbness, tingling, or weakness. PSYCH: Denies depression or anxiety. [facility] Past Medical History Medical History (Updated 04/21/23 @ 13:20 by Jocelin Edouard, [facility], ) Anemia Anxiety B12 deficiency Depression Migraine Tachycardia, unspecified Vaginal discharge Surgical History Surgical History H/O section History of ovarian cystectomy History of tonsillectomy Family History Family History Mother Alcoholism Depression Father Alcoholism Grandparent Depression Lung cancer Other Cerebrovascular accident Aunt Breast cancer Aunt Melanoma Uncle Social History Social History (Reviewed 07/11/23 @ 10:49 by MUKUL Marquez Smoking packs per day: 0.5 Smoking cigarettes per day: 10.0 Smoking status: Former smoker Tobacco type: cigarettes Smoking end date: 06/19/22 Alcohol intake: current Alcohol use details: Occasionally Substance use: never Lack of Transportation: No Lack of Food: Never True Current Housing: I Have Housing Concerned About Future Housing: No Difficulty Paying Gas/Electric Bills: No Difficulty Paying for Meds: No Currently Unemployed: No Education: High School Diploma/GED Living arrangements: with family Occupation/Education: occupation Gender identity (if verbalized by the patient): Female Sexual Orientation (if Verbalized by the Patient): Straight or Heterosexual Spiritual care concerns: No Agree to blood products: Yes Comments At time of signature, I have reviewed and agree with nursing past medical, surgical, social and family history unless otherwise noted. Please see nursing chart for further information. There is no relevant family history pertinent to the presenting complaint Exam Narrative: GENERAL: Mildly ill-appearing, well-nourished, and in no acute distress. HEAD: Normocephalic, atraumatic. EYES: EOMI. No redness or drainage. Conjunctivae normal. ENT: Mucous membranes pink and moist. Nares congested. No rhinorrhea. TMs normal bilaterally. Throat normal. Uvula midline. NECK: Normal AROM. Supple. No lymphadenopathy. CHEST: No respiratory distress. Clear to auscultation. HEART: Regular rate and rhythm. No murmur appreciated. EXTREMITIES: Normal range of motion. No edema. SKIN: Warm, dry, no rash. Ca
== END 2023-04-21 13:25 | disposition home or self-care (01) ==
PROVIDERS: Emergency Provider Nurse Practitioner; PCP Family Medicine
DX: B34.9 Viral infection, unspecified (principal); Z87.891 Personal history of nicotine dependence
CPT/HCPCS: 87804; 99213; G0463